=== PATIENT | female | born 1955 | race Caucasian/White ===

== ENCOUNTER 2024-08-09 11:54 | Emergency (ER) | payer MEDICARE, OTHER, SELFPAY ==
[2024-08-09 11:56] VITALS: BP 144/87
--- NOTE | 2024-08-09 13:45 | ED.GENMED ---
History of Present Illness
General
Chief Complaint: Skin Surface Trauma
Source: patient and family
Exam Limitations: none
Time Seen by Provider: 08/09/24 12:59
Nursing documentation reviewed up to this point in time: agreed with
History of Present Illness
History of Present Illness:
Patient is a 69-year-old female presents to the emergency department after tripping on curb and falling and lacerating her right eyebrow. Patient's tetanus is up-to-date. Patient denies any syncope, headache, neck pain, focal weakness, ataxia.
Patient also bruised her hands and knees bilaterally. Patient did not lose consciousness. Patient has no visual or speech difficulties.
Past History
Past History
ED Past Medical History: HTN and Hypothyroidism
Social History
Tobacco: Non-smoker
Review of Systems
Review of Systems
All Other Systems: Not applicable
Phy Exam
Physical Exam
Physical Exam:
Physical Exam
General: No apparent distress, alert and appropriate, well nourished, well hydrated
HENT: Normocephalic with approximately 1 cm superficial laceration to the superior lateral aspect of the right eyebrow. No bony tenderness or deformity, supple with no cervical tenderness or tracheal deviation
Eyes: Clear sclera, conjuctiva without injection
Abdomen: Soft, nontender
Neuro: Alert and oriented x 3, CN II - XII intact, no motor focality, no cerebellar dysfunction
Skin: Laceration as stated above
Psychiatric: well kept. interactive and cooperative
Extremities: No edema, cyanosis. Mild tenderness of hands, wrists and knees bilaterally with scattered small superficial abrasions
Course
Vital Signs
Initial and Last Documented VS:
Initial Vital Signs
Temp Pulse Resp BP Pulse Ox
98.5 F 60 16 144/87 96
08/09/24 11:56 08/09/24 11:56 08/09/24 11:56 08/09/24 11:56 08/09/24 11:56
Last Documented Vital Signs
Temp Pulse Resp BP Pulse Ox
98.5 F 60 16 144/87 96
08/09/24 11:56 08/09/24 11:56 08/09/24 11:56 08/09/24 11:56 08/09/24 11:56
Procedures
Laceration Closure
Right Lateral Eye brow:
Status of Wound: clean
Size of Wound in cm: 1
Description of Wound Edges: sharp
Preparation: cleaned with saline
Revision/Debridement: routine- no revision
Wound exploration: explored to base- no FB
Type of Closure: Dermabond-skin glue
Number of sutures: 0
*Critical Care Note
Total Time (30-74mins, 75-104mins- exclusive of procedures): Not Applicable
ED Attending Note
-
Portions of this chart may have been created with voice recognition software.� Occasional wrong word or��sound alike� substitutions may have occurred due to the inherent limitations of voice recognition software.
Discharge Plan
Departure
Patient Disposition: Home (Routine Discharge)
Date of Disposition: 08/09/24
Time of Disposition: 13:49
Patient with high blood pressure during this ER visit?: No
Condition: Good
Covid-19: Not Applicable
Discharge Problem:
Laceration of eyebrow, right
Instructions: Laceration Repair With Glue (DC), Contusion
Referrals:
Dixie Ramos MD [Family Provider] - As needed
Activity Restrictions/Additional Instructions:
Acetaminophen 650 mg every 6 hours for pain. Plenty of ice to bruised areas. Keep all abrasions clean with soap and water. You may shower and get the area wet but no ointments.
Interventions
Interventions:
*Risk Screen - Suicide Last Done: 08/09/24 11:56
*Neglect/Abuse Screening Last Done: 08/09/24 11:56
Discharge Date and Time
Print Language: [place]
== END 2024-08-09 14:38 | disposition home or self-care (01) ==
LOC: EMR 11:54
PROVIDERS: EMERGENCY PHYSICIAN Emergency Medicine; FAMILY PHYSICIAN Internal Medicine
DX: S01.111A Laceration without foreign body of right eyelid and periocular area, initial encounter (principal); S60.222A Contusion of left hand, initial encounter; S60.221A Contusion of right hand, initial encounter; S80.02XA Contusion of left knee, initial encounter; S80.01XA Contusion of right knee, initial encounter; S60.512A Abrasion of left hand, initial encounter; S60.511A Abrasion of right hand, initial encounter; S60.812A Abrasion of left wrist, initial encounter; S60.811A Abrasion of right wrist, initial encounter; S80.212A Abrasion, left knee, initial encounter; S80.211A Abrasion, right knee, initial encounter; W10.1XXA Fall (on)(from) sidewalk curb, initial encounter; E03.9 Hypothyroidism, unspecified; I10 Essential (primary) hypertension
CPT/HCPCS: 99282; 12011